=== PATIENT | male | born 1960 | race Caucasian/White ===

== ENCOUNTER 2016-09-03 15:10 | Emergency (ER) | payer OTHER ==
[~2016-09-03] VITALS: Ht 160 cm; Wt 81.7 kg
[~2016-09-03 15:10] MED LIST: CIPROFLOXACIN500 M1 PO; DOXYCYCLINE 10100 M1 PO; FLAGYL500 MG PO; KEFLEX500 MG PO; NORCO 5-325 TA1 EACH PO; PAIN & FEVER500 MG PO; PHENERGAN 25 MG25 M1 PO; TESSALON PERLE100 MG PO
[2016-09-03] MEDS ORDERED: TIZANIDINE HCL4 MG PO (18:21)
[2016-09-03] MEDS ORDERED: IBUPROFEN 600600 M1 PO (18:21)
[2016-09-03] MEDS ORDERED: NORCO 5-325 TA1 EACH PO (18:22)
[2016-09-03 18:50] VITALS: BP 135/84
== END 2016-09-03 18:52 | disposition home or self-care (01) ==
LOC: ER 15:10
DX: S16.1XXA Strain of muscle, fascia and tendon at neck level, initial encounter (principal); F17.210 Nicotine dependence, cigarettes, uncomplicated; X50.0XXA Overexertion from strenuous movement or load, initial encounter; Y93.89 Activity, other specified; Y92.89 Other specified places as the place of occurrence of the external cause; Y99.0 Civilian activity done for income or pay

== ENCOUNTER 2018-04-25 19:59 | Emergency (ER) | payer OTHER ==
[~2018-04-25] VITALS: Ht 160 cm; Wt 81.7 kg
[~2018-04-25 19:59] MED LIST changes: +IBUPROFEN 600600 M1 PO; +TIZANIDINE HCL4 MG PO
[2018-04-25 20:29] LABS: ABSOLUTE NEUTROPHILS 4.6 thou/uL (1.4-8.2); BASOPHILS 1.1 % (0.0-2.0); EOSINOPHILS 3.4 % (0.0-3.0); HEMATOCRIT 46.8 % (42.0-52.0); HEMOGLOBIN 16.3 gm/dL (14.0-18.0); LYMPHOCYTES 37.9 % (24.0-44.0); MCHC 34.9 g/dL (28.0-37.0); MCV 94.7 fL (80.0-100.0); MONOCYTES 6.1 % (1.0-8.0); PLATELET COUNT 220 thou/uL (150-400); POLYS 51.5 % (36.0-66.0); RBC 4.94 mil/uL (4.50-6.00); RDW 12.9 % (10.5-14.5)
[2018-04-25 20:31] LABS: URINE CLARITY CLEAR; URINE COLOR YELLOW
[2018-04-25 20:32] LABS: URINE BILIRUBIN NEGATIVE (Negative); URINE BLOOD 2+ (Negative); URINE GLUCOSE-RANDOM* NEGATIVE (Negative); URINE KETONES NEGATIVE (Negative); URINE LEUKOCYTES-REFLEX NEGATIVE (Negative); URINE NITRITE-REFLEX NEGATIVE (Negative); URINE PROTEIN (DIPSTICK) NEGATIVE (Negative); URINE SPECIFIC GRAVITY 1.025 (1.005-1.035); URINE UROBILINOGEN 0.2 E.U./dl (0.2-1.0)
[2018-04-25 20:40] LABS: BACTERIA-REFLEX None Seen /HPF (None Seen); CASTS None Seen /LPF (None Seen); CRYSTALS None Seen /LPF (None Seen); MUCUS >6 Heavy strn/LPF (None Seen); SQUAMOUS None Seen /LPF (0-3); URINE RBC 0-2 Rare /HPF (0-2); URINE WBC-REFLEX 0-5 Rare /HPF (0-5)
[2018-04-25 21:11] LABS: ALBUMIN 3.4 g/dL (3.4-5.0); CALCIUM 8.6 mg/dL (8.5-10.1); POTASSIUM 3.7 mmol/L (3.5-5.1); TOTAL BILIRUBIN 0.3 mg/dL (<0.1-1.0); TOTAL PROTEIN 7.1 g/dL (6.4-8.2)
[2018-04-25] MEDS ORDERED: HYDROCODONE-AP1 EAC6 PO (22:30)
[2018-04-25] MEDS ORDERED: BENTYL 20 MG TA20 M1 PO (22:30)
[2018-04-25 22:47] VITALS: BP 122/58
== END 2018-04-25 22:52 | disposition home or self-care (01) ==
LOC: ER 19:59
PROVIDERS: Physician Assistant
DX: K80.50 Calculus of bile duct without cholangitis or cholecystitis without obstruction (principal); F17.210 Nicotine dependence, cigarettes, uncomplicated